=== PATIENT | female | born 1970 | race American Indian/Alaskan Native ===

== ENCOUNTER 2016-08-05 15:21 | Emergency (ER) | payer MEDICARE | END 2016-08-05 16:41 | disposition left against medical advice (07) | LOC: ED 15:21 | DX: R52 Pain, unspecified (principal); Z88.1 Allergy status to other antibiotic agents; Z88.8 Allergy status to other drugs, medicaments and biological substances; Z91.040 Latex allergy status; Z53.21 Procedure and treatment not carried out due to patient leaving prior to being seen by health care provider ==

== ENCOUNTER 2016-08-06 16:45 | Emergency (ER) | payer MEDICARE ==
[2016-08-06 18:40] LABS: Basophils % (Auto) 0.5 % (0.0-1.8); Eosinophils % (Auto) 1.2 % (0.0-4.3); Hematocrit 40.8 % (30.3-42.9); Hemoglobin 13.5 gm/dl (10.1-14.3); Mean Corpuscular HGB Conc 33 % (30-34); Mean Corpuscular Hemoglobin 29 pg (28-32); Mean Corpuscular Volume 89 fl (79-97); Platelet Count 182 K/mm3 (140-440); Red Blood Count 4.61 M/mm3 (3.65-5.03); Red Cell Distribution Width 14.2 % (13.2-15.2); White Blood Count 4.6 K/mm3 (4.5-11.0)
[2016-08-06 19:03] LABS: Alanine Aminotransferase 15 units/L (7-56); Albumin 4.2 g/dL (3.9-5); Albumin/Globulin Ratio 1.1 %; Alkaline Phosphatase 137 units/L (35-129); Anion Gap 19 mmol/L; BUN/Creatinine Ratio 13.75; Bilirubin,Total < 0.2 mg/dL (0.1-1.2); Blood Urea Nitrogen 11 mg/dL (7-17); Calcium 9.5 mg/dL (8.4-10.2); Carbon Dioxide 24 mmol/L (22-30); Chloride 95.6 mmol/L (98-107); Glucose 439 mg/dL (65-100); Lipase 31 units/L (13-60); Potassium 4.2 mmol/L (3.6-5.0); Sodium 134 mmol/L (137-145); Total Protein 7.9 g/dL (6.3-8.2)
[2016-08-06 19:49] LABS: Bacteria,Urine 1+ /HPF (Negative); Bilirubin,Urine NEG (Negative); Blood,Urine NEG (Negative); Ketones,Urine NEG (Negative); Leukocyte Esterase,Urine NEG (Negative); Mucus,Urine FEW /HPF; Nitrite,Urine NEG (Negative); Protein,Urine <15 mg/dL mg/dL (Negative); Urobilinogen,Urine < 2.0 mg/dL (<2.0)
[2016-08-07] MEDS ORDERED: ZOFRAN IV ONE (01:46)
[2016-08-07] MEDS ORDERED: BENADRYL IV ONE (01:46)
[2016-08-07] MEDS ORDERED: MORPHINE IV ONE (01:46)
--- NOTE | 2016-08-07 01:53 | Emergency Department Report ---
HPI - General Chief Complaint: Abdominal Pain Time Seen by Provider: 08/07/16 01:13 - HPI HPI: This is a 46-year-old -[place] female presents emergency Department with a 2 day history of right upper quadrant abdominal pain. It is associated with some nausea and vomiting but she denies any fever, diarrhea, back pain, dysuria, vaginal bleeding or discharge. The patient has history of insulin dependent diabetes, HIV, hypertension. She has not taken anything for symptoms prior presentation. She went to an urgent care 2 days ago and did not have any imaging but was told that maybe she has a right kidney cyst. Patient follows with Dr. Jared Feldman for infectious disease but does not have a primary care doctor. No recent travel or sick contacts at home. ED Past Medical Hx - Past Medical History Previous Medical History?: Yes Hx Hypertension: Yes Hx Congestive Heart Failure: No Hx Diabetes: Yes Hx Asthma: No Hx COPD: No Hx HIV: Yes Additional medical history: high cholesterol - Surgical History Past Surgical History?: Yes Hx Cholecystectomy: Yes (08/08/2015) - Social History Smoking Status: Never Smoker Substance Use Type: Prescribed - Medications Home Medications: Home Medications Medication Instructions Recorded Confirmed Last Taken Type metFORMIN XR [Glucophage XR] 1,000 mg PO BID 05/27/13 09/30/15 09/29/15 History Abacavir Sulfate/Lamivudine 1 each PO DAILY 08/19/14 09/30/15 09/29/15 History [Epzicom TAB] Raltegravir Potassium [Isentress] 400 mg PO BID 08/19/14 09/30/15 09/29/15 History Cyclobenzaprine [Flexeril 10 MG 10 mg PO TID PRN #20 tablet 05/12/15 09/30/15 Rx TAB] Famotidine [Pepcid] 20 mg PO BID #60 tablet 07/04/15 09/30/15 09/29/15 Rx Ondansetron [Zofran Odt] 4 mg PO QID PRN #20 tab.rapdis 09/30/15 Unknown Rx Dicyclomine [Bentyl] 10 mg PO QID PRN #20 capsule 08/07/16 Unknown Rx Docusate Sodium [Colace] 100 mg PO BID PRN #20 capsule 08/07/16 Unknown Rx Magnesium Citrate [Citrate of 300 ml PO NOW #1 bottle 08/07/16 Unknown Rx Magnesia] Ondansetron [Zofran Odt] 4 mg PO Q8HR PRN #10 tab.sarwatdis 08/07/16 Unknown Rx ED Review of Systems ROS: Stated complaint: RT SIDE PAIN Other details as noted in HPI Comment: All other systems reviewed and negative Constitutional: denies: chills, fever Eyes: denies: eye pain, eye discharge, vision change ENT: denies: ear pain, throat pain Respiratory: denies: cough, shortness of breath, wheezing Cardiovascular: denies: chest pain, palpitations Gastrointestinal: abdominal pain, nausea, vomiting. denies: diarrhea Genitourinary: denies: urgency, dysuria, discharge Musculoskeletal: denies: back pain, joint swelling, arthralgia Skin: denies: rash, lesions Neurological: denies: headache, weakness, paresthesias Physical Exam - Physical Exam Vital Signs: Vital Signs 08/06/16 08/07/16 16:50 01:37 Temperature 98 F 98 F Pulse Rate 72 61 Respiratory 18 18 Rate Blood Pressure 121/68 Blood Pressure 106/55 [Left] O2 Sat by Pulse 100 100 Oximetry Physical Exam: GENERAL: The patient is well-developed well-nourished. HEENT: Normocephalic. Atraumatic. Extraocular motions are intact. Patient has moist mucous membranes. Pupils equal reactive to light bilaterally. NECK: Supple. Trachea is midline. CHEST/LUNGS: Clear to auscultation. There is no respiratory distress noted. HEART/CARDIOVASCULAR: Regular. There is no tachycardia. There is no gallop rub or murmur. ABDOMEN: Abdomen is soft. There is right upper quadrant tenderness to palpation. No guarding rebound tenderness. No peritoneal signs with heel strike. Patient has normal bowel sounds. There is no abdominal distention. SKIN: Skin is warm and dry. NEURO: The patient is awake, alert, and oriented. The patient is cooperative. The patient has no focal neurologic deficits. The patient has normal speech. MUSCULOSKELETAL: There is no tenderness or deformity. There is no limitation range of motion. There is no evidence of acute injury. ED Course Vital Signs 08/06/16 08/07/16 16:50 01:37 Temperature 98 F 98 F Pulse Rate 72 61 Respiratory 18 18 Rate Blood Pressure 121/68 Blood Pressure 106/55 [Left] O2 Sat by Pulse 100 100 Oximetry ED Medical Decision Making - Lab Data Result diagrams: 08/06/16 18:16 08/06/16 18:16 - Radiology Data Radiology results: report reviewed Abdominal x-ray shows a moderate stool throughout the colon. There is no obstruction. There is no fecal impaction or bowel wall thickening. There is no free air. Abdominal ultrasound shows that there has been a previous cholecystectomy. There is no biliary ductal dilation. There is no liver mass or ascites. - Medical Decision Making 38-year-old female presents to the emergency department with a 2 day history of right upper quadrant abdominal pain and some nausea and vomiting. Patient's labs are mostly unremarkable including no leukocytosis, electrolyte abnormalities, renal insufficiency. Patient has normal belly labs including lipase, bilirubin and LFTs. There is no UTI and patient is not . However the one significant abnormality today is hyperglycemia with a blood sugar that reached a max of 470. The patient's Accu-Chek before getting insulin and IV fluid was down to about 370. There is a slightly elevated but not significantly elevated anion gap. No ketones in the urine. She was given IV fluid and insulin and her blood sugars come down to 160. Due to the patient' s discomfort, she had an abdominal ultrasound and x-ray. The x-ray was read by radiology as a moderate stool burden but no obstruction. Ultrasound also did not show any acute process. Patient was given a dose of pain medications and says she is feeling better. There is been no further vomiting within the emergency department. She appears stable at this time for discharge home. She says she has an infectious disease doctor but will be given referrals for primary care and gastroenterology. She will return to the ER with any worsening of her symptoms or any acute distress. - Differential Diagnosis pancreatitis, colitis, constipation, Critical Care Time: No Critical care attestation.: If time is entered above; I have spent that time in minutes in the direct care of this critically ill patient, excluding procedure time. ED Disposition Clinical Impression: Hyperglycemia, Increased stool volume Abdominal pain Qualifiers: Abdominal location: right upper quadrant Qualified Code(s): R10.11 - Right upper quadrant pain Nausea & vomiting Qualifiers: Vomiting type: unspecified Vomiting Intractability: non-intractable Qualified Code(s): R11.2 - Nausea with vomiting, unspecified Disposition: DISCHARGED TO HOME OR SELFCARE Is pt being admited?: No Condition: Stable Instructions: Abdominal Pain (ED), Diabetic Hyperglycemia (ED), Acute Nausea and Vomiting (ED) Additional Instructions: Please follow-up with a primary care doctor in the next few days. I've given you a referral for a local fitness sales consultant, Dr. Feldman, to follow up regarding your abdominal pain. Return to the emergency department with any worsening of your symptoms or any acute distress. Try to stay away from foods that are high in carbohydrates, starches and sugars to help with her diabetes. You've been prescribed a medication that is sedating. Therefore this medication cannot be mixed with alcohol, or taken prior to driving, working, or being responsible for children. Prescriptions: Dicyclomine [Bentyl] 10 mg PO QID PRN #20 capsule PRN Reason: Pain Docusate Sodium [Colace] 100 mg PO BID PRN #20 capsule PRN Reason: Constipation Magnesium Citrate [Citrate of Magnesia] 300 ml PO NOW #1 bottle Ondansetron [Zofran Odt] 4 mg PO Q8HR PRN #10 tab.rapdis PRN Reason: Nausea Referrals: PRIMARY CARE, [Primary Care Provider] - 3-5 Days HUMA HURTADO MD [Staff Physician] - 3-5 Days CORNELIA FELDMAN MD [Staff Physician] - 3-5 Days [facility] [Outside] - 3-5 Days Time of Disposition: 05:30
--- NOTE | 2016-08-07 03:09 | Ultrasound Report ---
FINAL REPORT PROCEDURE: US ABDOMEN LIMITED TECHNIQUE: Real-time sonography in multiple planes of the gallbladder fossa and CBD with imaging of the adjacent liver, pancreas, and right kidney was performed with image documentation. CPT 38263 HISTORY: RUQ pain COMPARISON: No prior studies are available for comparison. FINDINGS: Liver: Normal size and echotexture with no evidence of cystic or solid mass lesion. Gallbladder: There has been a cholecystectomy.. Intrahepatic bile ducts: Normal . Extrahepatic bile ducts: Normal . Pancreas: Normal as visualized with suboptimal depiction of the pancreatic tail. Right kidney: Normal echotexture. No focal renal mass, calculus, or hydronephrosis. Other: No free fluid. IMPRESSION: There has been a cholecystectomy. There is no biliary ductal dilatation. There is no liver mass or ascites.
[2016-08-07] MEDS ORDERED: NACL 0.9% 1000 ML 1,000 ML IV ONE (03:19)
--- NOTE | 2016-08-07 04:15 | XRay Report ---
FINAL REPORT PROCEDURE: XR ABDOMEN 2V TECHNIQUE: Abdominal radiograph, single supine AP view. HISTORY: abd pain COMPARISON: No prior studies are available for comparison. FINDINGS: Bowel gas pattern:There is moderate stool throughout the colon. There is no obstruction. There is no fecal impaction or bowel wall thickening.. Masses or calcifications:None. Bony structures:No significant abnormality. Other:There is no free air. There has been a cholecystectomy.. IMPRESSION: There is moderate stool throughout the colon. There is no obstruction. There is no fecal impaction or bowel wall thickening.. There is no free air.
[2016-08-07 06:31] VITALS: BP 132/70
== END 2016-08-07 06:35 | disposition home or self-care (01) ==
LOC: ED 16:45
DX: R10.11 Right upper quadrant pain (principal); R11.2 Nausea with vomiting, unspecified; E11.65 Type 2 diabetes mellitus with hyperglycemia; I10 Essential (primary) hypertension; E78.00 Pure hypercholesterolemia, unspecified
CPT/HCPCS: 36415; 74020; 76705; 80053; 81001; 81025; 82805; 82962; 83690; 85025; 96361; 96374; 96375; 99285; J1200; J2270; J2405; J7030; J1815

== ENCOUNTER 2018-08-18 16:01 | Emergency (ER) | payer MEDICARE ==
[2018-08-18] MEDS ORDERED: NACL 0.9% 1000 ML 1,000 ML IV ONE (16:09)
[2018-08-18 16:38] LABS: Basophils % (Auto) 0.5 % (0.0-1.8); Eosinophils # (Auto) 0.1 K/mm3 (0.0-0.4); Eosinophils % (Auto) 2.3 % (0.0-4.3); Hematocrit 43.4 % (30.3-42.9); Hemoglobin 14.5 gm/dl (10.1-14.3); Lymphocytes # (Auto) 1.6 K/mm3 (1.2-5.4); Lymphocytes % (Auto) 39.3 % (13.4-35.0); Mean Corpuscular HGB Conc 34 % (30-34); Mean Corpuscular Volume 87 fl (79-97); Monocytes # (Auto) 0.3 K/mm3 (0.0-0.8); Monocytes % (Auto) 7.9 % (0.0-7.3); Platelet Count 201 K/mm3 (140-440); Red Blood Count 5.01 M/mm3 (3.65-5.03); Red Cell Distribution Width 14.2 % (13.2-15.2)
[2018-08-18 16:42] LABS: Bilirubin,Urine NEG (Negative); Blood,Urine SM (Negative); Color,Urine Straw (Yellow); Protein,Urine <15 mg/dL mg/dL (Negative); RBC,Urine < 1.0 /HPF (0.0-6.0); Urobilinogen,Urine < 2.0 mg/dL (<2.0)
[2018-08-18 16:55] LABS: Alanine Aminotransferase 16 units/L (7-56); Albumin 4.2 g/dL (3.9-5); BUN/Creatinine Ratio 16; Blood Urea Nitrogen 8 mg/dL (7-17); Calcium 9.8 mg/dL (8.4-10.2); Hemolysis Index 20
[2018-08-18] MEDS ORDERED: ZOFRAN IV ONE (19:24)
[2018-08-18] MEDS ORDERED: BENTYL IM ONE (19:25)
[2018-08-18] MEDS ORDERED: BENADRYL PO ONE (19:35)
--- NOTE | 2018-08-18 20:44 | Emergency Department Report ---
ED Abdominal Pain HPI - General Chief Complaint: Abdominal Pain Stated Complaint: RT SIDE PAIN Time Seen by Provider: 08/18/18 19:09 Source: patient Mode of arrival: Ambulatory Limitations: No Limitations - History of Present Illness Initial Comments: Ms. Schmidt is a 48-year-old -[place] female history of HIV diabetes hypertension presents for right upper quadrant abdominal pain 4/10 aching exacerbated by by mouth intake and vomiting no fever no chills there are no relieving factors MD Complaint: abdominal pain Onset/Timin -: week(s) Radiation: none Migration to: no migration Severity: moderate Severity scale (0 -10): 9 Quality: cramping Consistency: intermittent Improves With: nothing Worsens With: eating Associated Symptoms: nausea. denies: fever, chills, constipation, dysuria - Related Data Home Medications Medication Instructions Recorded Confirmed Last Taken metFORMIN XR [Glucophage XR] 1,000 mg PO BID 05/27/13 09/30/15 09/29/15 Abacavir Sulfate/Lamivudine 1 each PO DAILY 08/19/14 09/30/15 09/29/15 [Epzicom TAB] Raltegravir Potassium [Isentress] 400 mg PO BID 08/19/14 09/30/15 09/29/15 Previous Rx's Medication Instructions Recorded Last Taken Type Cyclobenzaprine [Flexeril 10 MG 10 mg PO TID PRN #20 tablet 05/12/15 09/29/15 Rx TAB] Famotidine [Pepcid] 20 mg PO BID #60 tablet 07/04/15 09/29/15 Rx Ondansetron [Zofran Odt] 4 mg PO QID PRN #20 tab.rapdis 09/30/15 Unknown Rx Dicyclomine [Bentyl] 10 mg PO QID PRN #20 capsule 08/07/16 Unknown Rx Docusate Sodium [Colace] 100 mg PO BID PRN #20 capsule 08/07/16 Unknown Rx Magnesium Citrate [Citrate of 300 ml PO NOW #1 bottle 08/07/16 Unknown Rx Magnesia] Ondansetron [Zofran Odt] 4 mg PO Q8HR PRN #10 tab.rapdis 08/07/16 Unknown Rx Acetaminophen [Tylenol Extra 1,000 mg PO QID PRN #30 tablet 08/18/18 Unknown Rx Strength] Dicyclomine [Bentyl] 10 mg PO QID PRN #30 capsule 08/18/18 Unknown Rx Ondansetron [Zofran Odt] 4 mg PO Q8HR PRN #12 tab.rapdis 08/18/18 Unknown Rx Allergies Allergy/AdvReac Type Severity Reaction Status Date / Time azithromycin [From Zithromax] Allergy Hives Verified 08/18/18 16:03 hydromorphone HCl Allergy Rash Verified 08/18/18 16:03 [From Dilaudid] ketorolac tromethamine Allergy Rash Verified 08/18/18 16:03 [From Toradol] Latex, Natural Rubber Allergy Rash Verified 08/18/18 16:03 tramadol Allergy Rash Verified 08/18/18 16:03 ED Review of Systems ROS: Stated complaint: RT SIDE PAIN Other details as noted in HPI Constitutional: denies: chills, fever Eyes: denies: eye pain, eye discharge, vision change ENT: denies: ear pain, throat pain Respiratory: denies: cough, shortness of breath, wheezing Cardiovascular: denies: chest pain, palpitations Endocrine: no symptoms reported Gastrointestinal: abdominal pain, nausea. denies: vomiting, diarrhea, constipation, hematemesis, melena Genitourinary: denies: urgency, dysuria, discharge Musculoskeletal: denies: back pain, joint swelling, arthralgia Skin: denies: rash, lesions Neurological: denies: headache, weakness, paresthesias Psychiatric: denies: anxiety, depression Hematological/Lymphatic: denies: easy bleeding, easy bruising ED Past Medical Hx - Past Medical History Hx Hypertension: Yes Hx Congestive Heart Failure: No Hx Diabetes: Yes Hx Asthma: No Hx COPD: No Hx HIV: Yes Additional medical history: high cholesterol - Surgical History Hx Cholecystectomy: Yes (08/08/2015) - Social History Smoking Status: Never Smoker Substance Use Type: None - Medications Home Medications: Home Medications Medication Instructions Recorded Confirmed Last Taken Type metFORMIN XR [Glucophage XR] 1,000 mg PO BID 05/27/13 09/30/15 09/29/15 History Abacavir Sulfate/Lamivudine 1 each PO DAILY 08/19/14 09/30/15 09/29/15 History [Epzicom TAB] Raltegravir Potassium [Isentress] 400 mg PO BID 08/19/14 09/30/15 09/29/15 History Cyclobenzaprine [Flexeril 10 MG 10 mg PO TID PRN #20 tablet 05/12/15 09/30/15 09/29/15 Rx TAB] Famotidine [Pepcid] 20 mg PO BID #60 tablet 07/04/15 09/30/15 09/29/15 Rx Ondansetron [Zofran Odt] 4 mg PO QID PRN #20 tab.rapdis 09/30/15 Unknown Rx Dicyclomine [Bentyl] 10 mg PO QID PRN #20 capsule 08/07/16 Unknown Rx Docusate Sodium [Colace] 100 mg PO BID PRN #20 capsule 08/07/16 Unknown Rx Magnesium Citrate [Citrate of 300 ml PO NOW #1 bottle 08/07/16 Unknown Rx Magnesia] Ondansetron [Zofran Odt] 4 mg PO Q8HR PRN #10 tab.rapdis 08/07/16 Unknown Rx Acetaminophen [Tylenol Extra 1,000 mg PO QID PRN #30 tablet 08/18/18 Unknown Rx Strength] Dicyclomine [Bentyl] 10 mg PO QID PRN #30 capsule 08/18/18 Unknown Rx Ondansetron [Zofran Odt] 4 mg PO Q8HR PRN #12 tab.rapdis 08/18/18 Unknown Rx ED Physical Exam - General Limitations: No Limitations General appearance: alert, in no apparent distress - Head Head exam: Present: atraumatic, normocephalic - Eye Eye exam: Present: normal appearance, PERRL, EOMI Pupils: Present: normal accommodation - ENT ENT exam: Present: normal orophraynx, mucous membranes moist, TM's normal bilaterally, normal external ear exam - Neck Neck exam: Present: normal inspection, full ROM. Absent: lymphadenopathy - Respiratory Respiratory exam: Present: normal lung sounds bilaterally. Absent: respiratory distress, wheezes, rales, stridor, chest wall tenderness - Cardiovascular Cardiovascular Exam: Present: regular rate, normal rhythm, normal heart sounds. Absent: systolic murmur, diastolic murmur, rubs, gallop - GI/Abdominal GI/Abdominal exam: Present: soft, normal bowel sounds. Absent: distended, tenderness, guarding, rebound, rigid, bruit, hernia - Expanded GI/Abdominal Exam Expanded GI/Abdominal exam: Absent: psoas sign, obturator sign, heel tap sign, Coleman's sign, Rovsing's sign, tenderness at [place]'s Point, ascites - Rectal Rectal exam: Present: deferred - External exam: Present: normal external exam - Extremities Exam Extremities exam: Present: normal inspection, full ROM, normal capillary refill. Absent: tenderness - Back Exam Back exam: Present: normal inspection, full ROM. Absent: tenderness, CVA tenderness (R), CVA tenderness (L), rash noted - Neurological Exam Neurological exam: Present: alert, oriented X3, CN II-XII intact, normal gait - Psychiatric Psychiatric exam: Present: normal affect, normal mood - Skin Skin exam: Present: warm, dry, intact, normal color. Absent: rash ED Course Vital Signs 08/18/18 16:08 Temperature 97.7 F Pulse Rate 70 Respiratory 18 Rate Blood Pressure 120/97 O2 Sat by Pulse 99 Oximetry ED Medical Decision Making - Lab Data Result diagrams: 08/18/18 16:17 08/18/18 16:17 Labs 08/18/18 08/18/18 08/18/18 16:17 16:17 16:17 WBC 4.1 L RBC 5.01 Hgb 14.5 H Hct 43.4 H MCV 87 MCH 29 MCHC 34 RDW 14.2 Plt Count 201 Lymph % (Auto) 39.3 H [place] % (Auto) 7.9 H Eos % (Auto) 2.3 Baso % (Auto) 0.5 Lymph # 1.6 [place] # 0.3 Eos # 0.1 Baso # 0.0 Seg Neutrophils % 50.0 Seg Neutrophils # 2.1 Sodium 133 L Potassium 4.2 Chloride 95.2 L Carbon Dioxide 27 Anion Gap 15 BUN 8 Creatinine 0.5 L Estimated GFR > 60 BUN/Creatinine Ratio 16 Glucose 291 H Calcium 9.8 Total Bilirubin 0.20 AST 19 ALT 16 Alkaline Phosphatase 143 H Total Protein 8.2 Albumin 4.2 Albumin/Globulin Ratio 1.1 Lipase HCG, Qual Negative Urine Color Urine Turbidity Urine pH Ur Specific [place] Urine Protein Urine Glucose (UA) Urine Ketones Urine Blood Urine Nitrite Urine Bilirubin Urine Urobilinogen Ur Leukocyte Esterase Urine WBC (Auto) Urine RBC (Auto) U Epithel Cells (Auto) 08/18/18 08/18/18 16:19 16:22 WBC RBC Hgb Hct MCV MCH MCHC RDW Plt Count Lymph % (Auto) [place] % (Auto) Eos % (Auto) Baso % (Auto) Lymph # [place] # Eos # Baso # Seg Neutrophils % Seg Neutrophils # Sodium Potassium Chloride Carbon Dioxide Anion Gap BUN Creatinine Estimated GFR BUN/Creatinine Ratio Glucose Calcium Total Bilirubin AST ALT Alkaline Phosphatase Total Protein Albumin Albumin/Globulin Ratio Lipase 28 HCG, Qual Urine Color Straw Urine Turbidity Clear Urine pH 5.0 Ur Specific [place] 1.018 Urine Protein <15 mg/dl Urine Glucose (UA) >=500 Urine Ketones Neg Urine Blood Sm Urine Nitrite Neg Urine Bilirubin Neg Urine Urobilinogen < 2.0 Ur Leukocyte Esterase Tr Urine WBC (Auto) 1.0 Urine RBC (Auto) < 1.0 U Epithel Cells (Auto) < 1.0 - Medical Decision Making pain is relieved to 0/10 pt is currently tolerating po intake without symptoms pt will follow up with pcp in 2 days return to ed if symptoms return or worsen. pt dc'd to home in stable condition. Critical care attestation.: If time is entered above; I have spent that time in minutes in the direct care of this critically ill patient, excluding procedure time. ED Disposition Clinical Impression: Abdominal pain Qualifiers: Abdominal location: generalized Qualified Code(s): R10.84 - Generalized abdominal pain Disposition: DC-01 TO HOME OR SELFCARE Is pt being admited?: No Does the pt Need Aspirin: No Condition: Stable Instructions: Abdominal Pain (ED) Prescriptions: Dicyclomine [Bentyl] 10 mg PO QID PRN #30 capsule PRN Reason: pain Acetaminophen [Tylenol Extra Strength] 1,000 mg PO QID PRN #30 tablet PRN Reason: pain Ondansetron [Zofran Odt] 4 mg PO Q8HR PRN #12 tab.rapdis PRN Reason: Nausea And Vomiting Referrals: LUCIE LANDRY MD [Referring] - 3-5 Days Forms: Work/School Release Form(ED) Time of Disposition: 21:17
[2018-08-18 21:31] VITALS: BP 120/90
== END 2018-08-18 21:32 | disposition home or self-care (01) ==
LOC: ED 16:01
DX: R10.84 Generalized abdominal pain (principal); I10 Essential (primary) hypertension; E11.9 Type 2 diabetes mellitus without complications; E78.00 Pure hypercholesterolemia, unspecified; Z90.49 Acquired absence of other specified parts of digestive tract
CPT/HCPCS: 36415; 80053; 81001; 83690; 84703; 85025; 96361; 96372; 96374; 99283; J0500; J2405; J7030

== ENCOUNTER 2019-12-21 19:23 | Emergency (ER) | payer MEDICARE ==
[2019-12-21 20:25] LABS: Basophils % (Auto) 0.4 % (0.0-1.8); Eosinophils % (Auto) 1.2 % (0.0-4.3); Hematocrit 40.6 % (30.3-42.9); Hemoglobin 13.8 gm/dl (10.1-14.3); Lymphocytes # (Auto) 1.6 K/mm3 (1.2-5.4); Lymphocytes % (Auto) 42.5 % (13.4-35.0); Mean Corpuscular HGB Conc 34 % (30-34); Mean Corpuscular Volume 89 fl (79-97); Monocytes # (Auto) 0.3 K/mm3 (0.0-0.8); Monocytes % (Auto) 7.6 % (0.0-7.3); Platelet Count 180 K/mm3 (140-440); Red Blood Count 4.58 M/mm3 (3.65-5.03); Red Cell Distribution Width 13.5 % (13.2-15.2)
[2019-12-21 20:36] LABS: Bilirubin,Urine NEG (Negative); Blood,Urine NEG (Negative); Color,Urine Yellow (Yellow); Mucus,Urine FEW /HPF; Protein,Urine <15 mg/dL mg/dL (Negative); Urobilinogen,Urine < 2.0 mg/dL (<2.0)
[2019-12-21 20:45] LABS: Alanine Aminotransferase 17 units/L (7-56); Albumin 4.1 g/dL (3.9-5); Blood Urea Nitrogen 10 mg/dL (7-17); Calcium 9.1 mg/dL (8.4-10.2); Hemolysis Index 19
[2019-12-21 20:49] LABS: BUN/Creatinine Ratio 20
--- NOTE | 2019-12-21 22:19 | Emergency Department Report ---
ED Abdominal Pain HPI - General Chief Complaint: Abdominal Pain Stated Complaint: SIDE PAIN Time Seen by Provider: 12/21/19 22:17 Source: patient Mode of arrival: Ambulatory Limitations: No Limitations - History of Present Illness Initial Comments: 49-year-old -[place] female patient with history of diabetes, HLD, and HIV (compliant with antiretrovirals) presents with complaints of right upper quadrant pain and nausea and vomiting x2 days. She states history of a cholecystectomy many years ago and denies any complications since. Patient de scribes her pain as intermittent and stabbing. Patient states her pain is made worse with movement of her abdomen. She denies any chest pain, shortness of breath, cough, fever/chills/sweats, hematemesis/coffee-ground emesis, diarrhea, melena/hematochezia, or urinary symptoms. She also denies any history of kidney stones or recurrent UTIs. She rates her current pain as a 8/10 in severity. -: Sudden - Related Data Home Medications Medication Instructions Recorded Confirmed Last Taken metFORMIN XR [Glucophage XR] 1,000 mg PO BID 05/27/13 09/30/15 09/29/15 Abacavir Sulfate/Lamivudine 1 each PO DAILY 08/19/14 09/30/15 09/29/15 [Epzicom TAB] Raltegravir Potassium [Isentress] 400 mg PO BID 08/19/14 09/30/15 09/29/15 Previous Rx's Medication Instructions Recorded Last Taken Type Cyclobenzaprine [Flexeril 10 MG 10 mg PO TID PRN #20 tablet 05/12/15 09/29/15 Rx TAB] Famotidine [Pepcid] 20 mg PO BID #60 tablet 07/04/15 09/29/15 Rx Ondansetron [Zofran Odt] 4 mg PO QID PRN #20 tab.rapdis 09/30/15 Unknown Rx Dicyclomine [Bentyl] 10 mg PO QID PRN #20 capsule 08/07/16 Unknown Rx Docusate Sodium [Colace] 100 mg PO BID PRN #20 capsule 08/07/16 Unknown Rx Magnesium Citrate [Citrate of 300 ml PO NOW #1 bottle 08/07/16 Unknown Rx Magnesia] Ondansetron [Zofran Odt] 4 mg PO Q8HR PRN #10 tab.rapdis 08/07/16 Unknown Rx Acetaminophen [Tylenol Extra 1,000 mg PO QID PRN #30 tablet 08/18/18 Unknown Rx Strength] Dicyclomine [Bentyl] 10 mg PO QID PRN #30 capsule 08/18/18 Unknown Rx Ondansetron [Zofran Odt] 4 mg PO Q8HR PRN #12 tab.rapdis 08/18/18 Unknown Rx Acetaminophen/Codeine [Tylenol 1 tab PO Q8H PRN #4 tab 12/22/19 Unknown Rx /Codeine # 3 tab] Ondansetron [Zofran Odt] 4 mg PO Q8HR #15 tab.rapdis 12/22/19 Unknown Rx Allergies Allergy/AdvReac Type Severity Reaction Status Date / Time azithromycin [From Zithromax] Allergy Hives Verified 08/18/18 16:03 hydromorphone HCl Allergy Rash Verified 08/18/18 16:03 [From Dilaudid] ketorolac tromethamine Allergy Rash Verified 08/18/18 16:03 [From Toradol] Latex, Natural Rubber Allergy Rash Verified 08/18/18 16:03 tramadol Allergy Rash Verified 08/18/18 16:03 ED Review of Systems ROS: Stated complaint: SIDE PAIN Other details as noted in HPI Constitutional: denies: chills, diaphoresis, fever, malaise ENT: denies: throat pain Respiratory: denies: cough, shortness of breath Cardiovascular: denies: chest pain, palpitations, edema, syncope Gastrointestinal: abdominal pain, nausea, vomiting. denies: diarrhea, constipation, hematemesis, melena, hematochezia Genitourinary: denies: urgency, dysuria, frequency, hematuria, discharge Musculoskeletal: denies: back pain Neurological: denies: headache Hematological/Lymphatic: denies: swollen glands ED Past Medical Hx - Past Medical History Previous Medical History?: Yes Hx Hypertension: Yes Hx Congestive Heart Failure: No Hx Diabetes: Yes Hx Asthma: No Hx COPD: No Hx HIV: Yes Additional medical history: high cholesterol - Surgical History Past Surgical History?: Yes Hx Cholecystectomy: Yes (08/08/2015) - Social History Smoking Status: Never Smoker Substance Use Type: None - Medications Home Medications: Home Medications Medication Instructions Recorded Confirmed Last Taken Type metFORMIN XR [Glucophage XR] 1,000 mg PO BID 05/27/13 09/30/15 09/29/15 History Abacavir Sulfate/Lamivudine 1 each PO DAILY 08/19/14 09/30/15 09/29/15 History [Epzicom TAB] Raltegravir Potassium [Isentress] 400 mg PO BID 08/19/14 09/30/15 09/29/15 History Cyclobenzaprine [Flexeril 10 MG 10 mg PO TID PRN #20 tablet 05/12/15 09/30/15 09/29/15 Rx TAB] Famotidine [Pepcid] 20 mg PO BID #60 tablet 07/04/15 09/30/15 09/29/15 Rx Ondansetron [Zofran Odt] 4 mg PO QID PRN #20 tab.rapdis 09/30/15 Unknown Rx Dicyclomine [Bentyl] 10 mg PO QID PRN #20 capsule 08/07/16 Unknown Rx Docusate Sodium [Colace] 100 mg PO BID PRN #20 capsule 08/07/16 Unknown Rx Magnesium Citrate [Citrate of 300 ml PO NOW #1 bottle 08/07/16 Unknown Rx Magnesia] Ondansetron [Zofran Odt] 4 mg PO Q8HR PRN #10 tab.rapdis 08/07/16 Unknown Rx Acetaminophen [Tylenol Extra 1,000 mg PO QID PRN #30 tablet 08/18/18 Unknown Rx Strength] Dicyclomine [Bentyl] 10 mg PO QID PRN #30 capsule 08/18/18 Unknown Rx Ondansetron [Zofran Odt] 4 mg PO Q8HR PRN #12 tab.rapdis 08/18/18 Unknown Rx Acetaminophen/Codeine [Tylenol 1 tab PO Q8H PRN #4 tab 12/22/19 Unknown Rx /Codeine # 3 tab] Ondansetron [Zofran Odt] 4 mg PO Q8HR #15 tab.rapdis 12/22/19 Unknown Rx ED Physical Exam - General Limitations: No Limitations General appearance: alert, in no apparent distress - Head Head exam: Present: atraumatic, normocephalic - Eye Eye exam: Present: normal appearance. Absent: scleral icterus - Neck Neck exam: Present: normal inspection, full ROM - Respiratory Respiratory exam: Present: normal lung sounds bilaterally. Absent: respiratory distress, chest wall tenderness - Cardiovascular Cardiovascular Exam: Present: regular rate, normal rhythm. Absent: systolic murmur, diastolic murmur, rubs, gallop - GI/Abdominal GI/Abdominal exam: Present: soft, tenderness (Right upper quadrant), normal bowel sounds. Absent: distended, rigid - Expanded GI/Abdominal Exam Expanded GI/Abdominal exam: Present: Coleman's sign - Extremities Exam Extremities exam: Present: normal inspection - Back Exam Back exam: Present: full ROM, CVA tenderness (R) (Mild). Absent: paraspinal tenderness, vertebral tenderness - Neurological Exam Neurological exam: Present: alert, oriented X3, normal gait - Psychiatric Psychiatric exam: Present: normal affect, normal mood - Skin Skin exam: Present: warm, dry, intact, normal color. Absent: rash, cyanosis, diaphoretic, erythema, ecchymosis ED Course Vital Signs 12/21/19 12/21/19 19:28 22:58 Temperature 98.0 F 98.1 F Pulse Rate 74 73 Respiratory 16 16 Rate Blood Pressure 148/82 154/86 O2 Sat by Pulse 100 99 Oximetry ED Medical Decision Making - Lab Data Result diagrams: 12/21/19 19:49 12/21/19 19:49 Lab Results 12/21/19 12/21/19 12/21/19 Range/Units 19:49 19:49 22:54 WBC 3.7 L (4.5-11.0) K/mm3 RBC 4.58 (3.65-5.03) M/mm3 Hgb 13.8 (10.1-14.3) gm/dl Hct 40.6 (30.3-42.9) % MCV 89 (79-97) fl MCH 30 (28-32) pg MCHC 34 (30-34) % RDW 13.5 (13.2-15.2) % Plt Count 180 (140-440) K/mm3 Lymph % (Auto) 42.5 H (13.4-35.0) % Gilliam % (Auto) 7.6 H (0.0-7.3) % Eos % (Auto) 1.2 (0.0-4.3) % Baso % (Auto) 0.4 (0.0-1.8) % Lymph # 1.6 (1.2-5.4) K/mm3 Gilliam # 0.3 (0.0-0.8) K/mm3 Eos # 0.0 (0.0-0.4) K/mm3 Baso # 0.0 (0.0-0.1) K/mm3 Seg Neutrophils % 48.3 (40.0-70.0) % Seg Neutrophils # 1.8 (1.8-7.7) K/mm3 PT 12.8 (12.2-14.9) Sec. INR 0.95 (0.87-1.13) APTT 25.1 (24.2-36.6) Sec. Sodium 133 L (137-145) mmol/L Potassium 3.8 (3.6-5.0) mmol/L Chloride 96.3 L (98-107) mmol/L Carbon Dioxide 25 (22-30) mmol/L Anion Gap 16 mmol/L BUN 10 (7-17) mg/dL Creatinine 0.5 L (0.6-1.2) mg/dL Estimated GFR > 60 ml/min BUN/Creatinine Ratio 20 % Glucose 238 H (65-100) mg/dL Calcium 9.1 (8.4-10.2) mg/dL Total Bilirubin 0.20 (0.1-1.2) mg/dL AST 26 (5-40) units/L ALT 17 (7-56) units/L Alkaline Phosphatase 140 H (35-129) units/L Total Protein 7.7 (6.3-8.2) g/dL Albumin 4.1 (3.9-5) g/dL Albumin/Globulin Ratio 1.1 % Lipase 26 (13-60) units/L Urine Color (Yellow) Urine Turbidity (Clear) Urine pH (5.0-7.0) Ur Specific [place] (1.003-1.030) Urine Protein (Negative) mg/dL Urine Glucose (UA) (Negative) mg/dL Urine Ketones (Negative) mg/dL Urine Blood (Negative) Urine Nitrite (Negative) Urine Bilirubin (Negative) Urine Urobilinogen (<2.0) mg/dL Ur Leukocyte Esterase (Negative) Urine WBC (Auto) (0.0-6.0) /HPF Urine RBC (Auto) (0.0-6.0) /HPF U Epithel Cells (Auto) (0-13.0) /HPF Urine Mucus /HPF 08/15/20 Range/Units Unknown WBC (4.5-11.0) K/mm3 RBC (3.65-5.03) M/mm3 Hgb (10.1-14.3) gm/dl Hct (30.3-42.9) % MCV (79-97) fl MCH (28-32) pg MCHC (30-34) % RDW (13.2-15.2) % Plt Count (140-440) K/mm3 Lymph % (Auto) (13.4-35.0) % Gilliam % (Auto) (0.0-7.3) % Eos % (Auto) (0.0-4.3) % Baso % (Auto) (0.0-1.8) % Lymph # (1.2-5.4) K/mm3 Gilliam # (0.0-0.8) K/mm3 Eos # (0.0-0.4) K/mm3 Baso # (0.0-0.1) K/mm3 Seg Neutrophils % (40.0-70.0) % Seg Neutrophils # (1.8-7.7) K/mm3 PT (12.2-14.9) Sec. INR (0.87-1.13) APTT (24.2-36.6) Sec. Sodium (137-145) mmol/L Potassium (3.6-5.0) mmol/L Chloride (98-107) mmol/L Carbon Dioxide (22-30) mmol/L Anion Gap mmol/L BUN (7-17) mg/dL Creatinine (0.6-1.2) mg/dL Estimated GFR ml/min BUN/Creatinine Ratio % Glucose (65-100) mg/dL Calcium (8.4-10.2) mg/dL Total Bilirubin (0.1-1.2) mg/dL AST (5-40) units/L ALT (7-56) units/L Alkaline Phosphatase (35-129) units/L Total Protein (6.3-8.2) g/dL Albumin (3.9-5) g/dL Albumin/Globulin Ratio % Lipase (13-60) units/L Urine Color Yellow (Yellow) Urine Turbidity Clear (Clear) Urine pH 6.0 (5.0-7.0) Ur Specific [place] 1.015 (1.003-1.030) Urine Protein <15 mg/dl (Negative) mg/dL Urine Glucose (UA) >=500 (Negative) mg/dL Urine Ketones Neg (Negative) mg/dL Urine Blood Neg (Negative) Urine Nitrite Neg (Negative) Urine Bilirubin Neg (Negative) Urine Urobilinogen < 2.0 (<2.0) mg/dL Ur Leukocyte Esterase Sm (Negative) Urine WBC (Auto) 2.0 (0.0-6.0) /HPF Urine RBC (Auto) 3.0 (0.0-6.0) /HPF U Epithel Cells (Auto) 1.0 (0-13.0) /HPF Urine Mucus Few /HPF - Radiology Data Radiology results: report reviewed ULTRASOUND ABDOMEN, LIMITED (RIGHT UPPER QUADRANT) INDICATION / CLINICAL INFORMATION: RUQ pain, + Coleman's, hx of cholecystectomy. COMPARISON: Prior ultrasound, 08/07/2016 FINDINGS: PANCREAS: Visualized portion shows no significant abnormality. LIVER: No significant abnormality. GALLBLADDER: Surgically absent. BILE DUCTS: No significant abnormality. Common bile duct measures 2 mm. FREE FLUID: None. ADDITIONAL FINDINGS: Portal vein is patent. The abdominal aorta has a normal caliber. IMPRESSION: 1. No significant sonographic abnormality of the right upper quadrant. 2. Prior cholecystectomy. No biliary dilatation. CHEST 1 VIEW INDICATION / CLINICAL INFORMATION: RLL pain/RUQ pain. COMPARISON: 07/03/2015 FINDINGS: SUPPORT DEVICES: None. HEART / MEDIASTINUM: No significant abnormality. LUNGS / PLEURA: No significant pulmonary or pleural abnormality. No pneumothorax. ADDITIONAL FINDINGS: There is marked scoliosis of the thoracic spine, convex to the patient's right. IMPRESSION: 1. No acute pulmonary disease. 2. Scoliosis of the thoracic spine. No interval change from prior exam. - Medical Decision Making Patient here with complaints of acute right upper quadrant pain x2 days. On exam patient had a positive Coleman sign. CBC, CMP, lipase, and UA are without significant abnormalities. History of cholecystectomy per patient. Chest x-ray is normal. Right upper quadrant ultrasound is negative for acute findings. Patient's vitals remain normal and she is well-appearing. No vomiting observed here in ED. Patient is stable for discharge home and follow-up with GI. Strict return precautions were discussed in detail with patient who verbalizes understanding. Critical care attestation.: If time is entered above; I have spent that time in minutes in the direct care of this critically ill patient, excluding procedure time. ED Disposition Clinical Impression: RUQ pain Disposition: DC-01 TO HOME OR SELFCARE Is pt being admited?: No Condition: Stable Instructions: Abdominal Pain (ED) Prescriptions: Acetaminophen/Codeine [Tylenol /Codeine # 3 tab] 1 tab PO Q8H PRN #4 tab PRN Reason: Pain , Severe (7-10) Ondansetron [Zofran Odt] 4 mg PO Q8HR #15 tab.linda Referrals: [facility] [Provider Group] - 2-3 Days
[2019-12-21] MEDS ORDERED: ONDANSETRON 4 MG ODT TAB PO ONE (22:52)
[2019-12-21 23:22] LABS: Partial Thromboplastin Time 25.1 Sec. (24.2-36.6)
--- NOTE | 2019-12-21 23:23 | XRay Report ---
CHEST 1 VIEW INDICATION / CLINICAL INFORMATION: RLL pain/RUQ pain. COMPARISON: 07/03/2015 FINDINGS: SUPPORT DEVICES: None. HEART / MEDIASTINUM: No significant abnormality. LUNGS / PLEURA: No significant pulmonary or pleural abnormality. No pneumothorax. ADDITIONAL FINDINGS: There is marked scoliosis of the thoracic spine, convex to the patient's right. IMPRESSION: 1. No acute pulmonary disease. 2. Scoliosis of the thoracic spine. No interval change from prior exam. Signer Name: Zamzam Del Rosario MD Signed: 12/21/2019 11:18 PM Workstation Name: [id number]
[2019-12-21 23:25] LABS: INR 0.95 (0.87-1.13)
--- NOTE | 2019-12-22 00:30 | Ultrasound Report ---
ULTRASOUND ABDOMEN, LIMITED (RIGHT UPPER QUADRANT) INDICATION / CLINICAL INFORMATION: RUQ pain, + Coleman's, hx of cholecystectomy. COMPARISON: Prior ultrasound, 08/07/2016 FINDINGS: PANCREAS: Visualized portion shows no significant abnormality. LIVER: No significant abnormality. GALLBLADDER: Surgically absent. BILE DUCTS: No significant abnormality. Common bile duct measures 2 mm. FREE FLUID: None. ADDITIONAL FINDINGS: Portal vein is patent. The abdominal aorta has a normal caliber. IMPRESSION: 1. No significant sonographic abnormality of the right upper quadrant. 2. Prior cholecystectomy. No biliary dilatation. Signer Name: Zamzam Del Rosario MD Signed: 12/22/2019 12:25 AM Workstation Name: [email or web address]
[2019-12-22] MEDS ORDERED: HYDROcodone/ACETAMINOPHEN 5-325 MG TAB PO ONE (01:46)
[2019-12-22 02:19] VITALS: BP 132/80
== END 2019-12-22 02:19 | disposition home or self-care (01) ==
LOC: ED 19:23
DX: R10.11 Right upper quadrant pain (principal); R11.2 Nausea with vomiting, unspecified; I10 Essential (primary) hypertension; E11.9 Type 2 diabetes mellitus without complications; Z21 Asymptomatic human immunodeficiency virus [HIV] infection status; Z90.49 Acquired absence of other specified parts of digestive tract; Z79.84 Long term (current) use of oral hypoglycemic drugs; Z79.899 Other long term (current) drug therapy; Z88.1 Allergy status to other antibiotic agents; Z88.8 Allergy status to other drugs, medicaments and biological substances; Z91.040 Latex allergy status
CPT/HCPCS: 36415; 71045; 76705; 80053; 81001; 83690; 85025; 85610; 85730; Q0162